=== PATIENT | male | born 1965 | race African-American/Black ===

== ENCOUNTER 2022-03-28 14:13 | Emergency (ER) | payer MEDICAID, OTHER ==
[~2022-03-28] VITALS: Ht 170.2 cm; Wt 73.0 kg
[2022-03-28 14:19] VITALS: BP 175/105
[2022-03-28] MEDS ORDERED: LIDOCAINE 5% PATCH TOP SCH (14:45)
[2022-03-28] MEDS ORDERED: IBUPROFEN 600MG TABLET PO ONE (14:45)
[2022-03-28] MEDS ORDERED: LIDO700A15 TP (15:42)
[2022-03-28] MEDS ORDERED: NAPR-1176 MT (15:42)
== END 2022-03-28 15:59 | disposition home or self-care (01) ==
LOC: ER 14:13
DX: M54.2 Cervicalgia (principal); M54.50 Low back pain, unspecified; V43.52XA Car driver injured in collision with other type car in traffic accident, initial encounter; Y93.89 Activity, other specified; Y92.410 Unspecified street and highway as the place of occurrence of the external cause
CPT/HCPCS: 99283; Z7610

== ENCOUNTER 2022-05-08 09:26 | Inpatient (IN) | payer MEDICAID ==
[~2022-05-08] VITALS: Ht 182.9 cm; Wt 62.1 kg
[~2022-05-08 09:26] MED LIST: LIDO700A15 TP; NAPR-1176 MT
[2022-05-08] MEDS ORDERED: MAGNESIUM/ALUMINUM HYDROXIDE/SIMETHICONE 30ML UDC PO STA (10:02)
[2022-05-08] MEDS ORDERED: METOCLOPRAMIDE HCL 10MG/2ML VIAL IV STA (10:02)
[2022-05-08] MEDS ORDERED: SODIUM CHLORIDE 0.9% 1,000 ML IV ONE (10:15)
[2022-05-08] MEDS ORDERED: HYDRALAZINE 20MG/ML VIAL IV ONE ×2 (10:45→12:15)
[2022-05-08 11:17] LABS: HEMATOCRIT. 46.1 % (42.0-52.0); HEMOGLOBIN. 14.8 g/dL (14.0-18.0); MEAN CORPUSCULAR HEMOGLOBIN 25.6 pg (28.0-32.0); MEAN CORPUSCULAR VOLUME 79.9 fL (80.0-94.0); MEAN PLATELET VOLUME 9.4 fl (7.4-10.4); PLATELET 247 x1000/uL (130-400); RED BLOOD CELL COUNT 5.77 mill/uL (4.7-6.1); RED CELL DISTRIBUTION WIDTH 16.5 % (11.6-14.6)
[2022-05-08 11:28] LABS: CHLORIDE 90 mEq/L (98-107)
[2022-05-08 11:50] LABS: PLATELET ESTIMATE NORMAL
[2022-05-08] MEDS ORDERED: PIPERACILLIN/TAZ 3.375G PREMIX 50 ML IV ONE (12:00)
[2022-05-08] MEDS ORDERED: NITROGLYCERIN 0.4MG TABLET SL SL PRN (15:15)
[2022-05-08] MEDS ORDERED: ONDANSETRON HCL 4MG/2ML INJ IV PRN (15:15)
[2022-05-08] MEDS ORDERED: MAGNESIUM/ALUMINUM HYDROXIDE/SIMETHICONE 30ML UDC PO PRN (15:15)
[2022-05-08] MEDS ORDERED: IPRATROPIUM/ALBUTEROL 0.5-3(2.5)MG/3ML NEB NEB PRN (15:15)
[2022-05-08] MEDS ORDERED: CLONIDINE 0.2MG TABLET PO PRN (15:15)
[2022-05-08] MEDS ORDERED: KETOROLAC 15MG/ML VIAL IV PRN (15:15)
[2022-05-08] MEDS ORDERED: GUAIFENESIN 200MG/10ML SUGAR FREE UDC PO PRN (15:15)
[2022-05-08] MEDS ORDERED: DOCUSATE SODIUM 100MG CAPSULE PO PRN (15:15)
[2022-05-08] MEDS ORDERED: ENOXAPARIN 40MG/0.4ML SYR SUBCUT SCH (15:15)
[2022-05-08] MEDS ORDERED: ACETAMINOPHEN 325MG TABLET PO PRN ×2 (15:15)
[2022-05-08 15:30] VITALS: BP 146/87
[2022-05-08] MEDS ORDERED: ENOXAPARIN 30MG/0.3ML SYR SUBCUT SCH (15:30)
[2022-05-08] MEDS ORDERED: PIPERACILLIN/TAZ 3.375G PREMIX 50 ML IV NR (16:00)
[2022-05-08 16:06] LABS: FOLIC ACID (FOLATE) SERUM >20 ng/mL ng/mL (>5.38); VITAMIN B12 SERUM 407 pg/mL (211-911)
[2022-05-08] MEDS: AMLODIPINE 10MG TABLET PO SCH (16:16)
[2022-05-08] MEDS: NITROGLYCERIN OINT 1GM/INCH UDPKT TD SCH ×2 (16:17→21:23)
[2022-05-08 16:49] VITALS: BP 146/87
[2022-05-08] MEDS: SODIUM CHLORIDE 0.9% 1,000 ML IV SCH (17:40)
[2022-05-08] MEDS ORDERED: PNEUMOCOCCAL 23-VAL P-SAC VAC 0.5 ML IM ONE (18:30)
[2022-05-08 20:00] VITALS: BP 135/80
[2022-05-08] MEDS ORDERED: ZOLPIDEM TARTRATE 5MG TABLET PO PRN (21:00)
[2022-05-08] MEDS: FAMOTIDINE 20MG TABLET PO SCH (21:21)
[2022-05-08] MEDS: METOPROLOL TARTRATE 25MG TABLET PO SCH (21:22)
[2022-05-08] MEDS: HYDRALAZINE HCL 50MG TABLET PO SCH (21:23)
[2022-05-08] MEDS: PIPERACILLIN/TAZOBACTAM 3.375G in DEXT 5% WATER 50ML IV SCH (21:27)
[2022-05-08 22:13] LABS: CLARITY URINE CLEAR (CLEAR); COLOR URINE YELLOW (YELLOW); KETONES URINE 4+ (NEGATIVE); LEUKOCYTE ESTERASE URINE NEGATIVE (NEGATIVE); NITRITE URINE NEGATIVE (NEGATIVE); OCCULT BLOOD URINE TRACE (NEGATIVE); PH URINE 5.5 (4.5-8.0); PROTEIN URINE 1+ (NEGATIVE); SPECIFIC GRAVITY URINE 1.023 (1.005-1.030)
[2022-05-08 22:29] LABS: *AMPHETAMINES SCREEN URINE NEGATIVE (NEGATIVE); *BARBITURATES SCREEN URINE NEGATIVE (NEGATIVE); *BENZODIAZEPINES SCREEN URINE NEGATIVE (NEGATIVE); *COCAINE SCREEN URINE NEGATIVE (NEGATIVE); CANNABINOID URINE SCREEN PRESUMTIVE POSITIVE (NEGATIVE); METHADONE URINE SCREEN NEGATIVE (NEGATIVE); OPIATES URINE SCREEN NEGATIVE (NEGATIVE); PHENCYCLIDINE URINE SCREEN NEGATIVE (NEGATIVE)
[2022-05-09] VITALS: BP 111/70
[2022-05-09 02:21] LABS: CREATINE KINASE 355 IU/L (39-308); CREATINE KINASE MB FRACTION 4.2 ng/mL (0.5-3.6); ETHANOL BLOOD < 10 mg/dL
[2022-05-09 04:00] VITALS: BP 114/65
[2022-05-09] MEDS: HYDRALAZINE HCL 50MG TABLET PO SCH ×3 (06:00→22:43)
[2022-05-09] MEDS: NITROGLYCERIN OINT 1GM/INCH UDPKT TD SCH ×3 (06:00→22:43)
[2022-05-09] MEDS: PIPERACILLIN/TAZOBACTAM 3.375G in DEXT 5% WATER 50ML IV SCH ×3 (06:23→21:16)
[2022-05-09 07:27] LABS: HEMATOCRIT. 40.9 % (42.0-52.0); HEMOGLOBIN. 13.2 g/dL (14.0-18.0); MEAN CORPUSCULAR HEMOGLOBIN 25.4 pg (28.0-32.0); MEAN CORPUSCULAR VOLUME 78.7 fL (80.0-94.0); MEAN PLATELET VOLUME 9.9 fl (7.4-10.4); PLATELET 203 x1000/uL (130-400); RED CELL DISTRIBUTION WIDTH 15.9 % (11.6-14.6)
[2022-05-09 07:28] LABS: CREATINE KINASE MB FRACTION 3.4 ng/mL (0.5-3.6)
[2022-05-09 07:30] LABS: CHLORIDE 96 mEq/L (98-107)
[2022-05-09 07:37] LABS: PHOSPHORUS 1.9 mg/dL (2.5-4.9)
[2022-05-09 08:00] VITALS: BP 104/67
[2022-05-09] MEDS: METOPROLOL TARTRATE 25MG TABLET PO SCH ×2 (08:47→21:17)
[2022-05-09] MEDS: AMLODIPINE 10MG TABLET PO SCH (08:47)
[2022-05-09] MEDS: SODIUM CHLORIDE 0.9% 1,000 ML IV SCH (11:27)
[2022-05-09 12:00] VITALS: BP 124/66
[2022-05-09] MEDS ORDERED: SODIUM PHOS,M-BASIC-D-BASIC 20 MM in DEXT 5% WATER 243.3333 ML IV NR (12:00)
[2022-05-09] MEDS: ENOXAPARIN 40MG/0.4ML SYR SUBCUT SCH (14:28)
[2022-05-09 16:00] VITALS: BP 111/76
[2022-05-09 20:00] VITALS: BP 119/74
[2022-05-09 20:40] LABS: PLATELET ESTIMATE NORMAL
[2022-05-09] MEDS: FAMOTIDINE 20MG TABLET PO SCH (21:16)
[2022-05-10] VITALS: BP 96/59
[2022-05-10 04:00] VITALS: BP 96/64
[2022-05-10] MEDS: HYDRALAZINE HCL 50MG TABLET PO SCH ×3 (06:00→22:47)
[2022-05-10] MEDS: NITROGLYCERIN OINT 1GM/INCH UDPKT TD SCH ×3 (06:00→22:46)
[2022-05-10] MEDS: PIPERACILLIN/TAZOBACTAM 3.375G in DEXT 5% WATER 50ML IV SCH ×3 (06:00→22:46)
[2022-05-10] MEDS: SODIUM CHLORIDE 0.9% 1,000 ML IV SCH (06:26)
[2022-05-10 06:45] LABS: BASOPHILS % 0.7 % (0.0-2.0); EOSINOPHILS % 3.7 % (0.0-5.0); HEMATOCRIT. 40.3 % (42.0-52.0); HEMOGLOBIN. 13.2 g/dL (14.0-18.0); MEAN CORPUSCULAR HEMOGLOBIN 25.7 pg (28.0-32.0); MEAN CORPUSCULAR VOLUME 78.8 fL (80.0-94.0); MEAN PLATELET VOLUME 9.1 fl (7.4-10.4); MONOCYTES % 13.9 % (2.0-8.0); NEUTROPHILS % 53.7 % (40.0-76.0); PLATELET 174 x1000/uL (130-400); RED BLOOD CELL COUNT 5.12 mill/uL (4.7-6.1); RED CELL DISTRIBUTION WIDTH 15.6 % (11.6-14.6)
[2022-05-10 07:02] LABS: CHLORIDE 95 mEq/L (98-107)
[2022-05-10 08:00] VITALS: BP 132/82
[2022-05-10] MEDS: METOPROLOL TARTRATE 25MG TABLET PO SCH (09:00)
[2022-05-10] MEDS: AMLODIPINE 10MG TABLET PO SCH (10:07)
[2022-05-10 10:28] LABS: PHOSPHORUS 2.7 mg/dL (2.5-4.9)
[2022-05-10 12:00] VITALS: BP 116/81
[2022-05-10] MEDS: ENOXAPARIN 40MG/0.4ML SYR SUBCUT SCH (15:22)
[2022-05-10 16:00] VITALS: BP 124/78
[2022-05-10 20:00] VITALS: BP 131/86
[2022-05-10] MEDS: FAMOTIDINE 20MG TABLET PO SCH (22:47)
[2022-05-11] VITALS: BP 122/85
[2022-05-11] MEDS ORDERED: POTASSIUM CHLORIDE 20MEQ TABLET SR PO NR (00:30)
[2022-05-11] MEDS: KCL 20MEQ/100ML PREMIX 200 ML IV SCH ×2 (02:13→04:44)
[2022-05-11 04:00] VITALS: BP 105/69
[2022-05-11] MEDS: SODIUM CHLORIDE 0.9% 1,000 ML IV SCH (04:45)
[2022-05-11] MEDS: NITROGLYCERIN OINT 1GM/INCH UDPKT TD SCH ×2 (06:00→14:00)
[2022-05-11] MEDS: HYDRALAZINE HCL 50MG TABLET PO SCH ×2 (06:00→14:00)
[2022-05-11] MEDS: PIPERACILLIN/TAZOBACTAM 3.375G in DEXT 5% WATER 50ML IV SCH ×2 (06:01→14:00)
[2022-05-11 08:00] VITALS: BP 124/80
[2022-05-11 08:25] LABS: CHLORIDE 99 mEq/L (98-107)
[2022-05-11] MEDS: AMLODIPINE 10MG TABLET PO SCH (09:02)
[2022-05-11] MEDS ORDERED: AMLO10TA80 PO (09:12)
[2022-05-11 12:00] VITALS: BP 128/81
[2022-05-11 14:42] VITALS: BP 122/78
[2022-05-11] MEDS: ENOXAPARIN 40MG/0.4ML SYR SUBCUT SCH (15:00)
== END 2022-05-11 19:14 | disposition home or self-care (01) | DRG 199 ==
LOC: ER 09:26 → 8WST 11:52 → EDBEDREQ 11:58 → EDBEDREQTM 11:58 → ENRESERV 13:58
PROVIDERS: ADMIT Internal Medicine; ATTEND Internal Medicine
DX: I16.1 Hypertensive emergency (principal); N17.0 Acute kidney failure with tubular necrosis; E87.1 Hypo-osmolality and hyponatremia; K52.9 Noninfective gastroenteritis and colitis, unspecified; E88.09 Other disorders of plasma-protein metabolism, not elsewhere classified; Z20.822 Contact with and (suspected) exposure to COVID-19; I10 Essential (primary) hypertension; Z82.49 Family history of ischemic heart disease and other diseases of the circulatory system
CPT/HCPCS: 36415; 71045; 74176; 76700; 80048; 80053; 80305; 80320; 81003; 82550; 82553; 82607; 82746; 83036; 83540; 83550; 83605; 83735; 84100; 84132; 84443; 84484; 85025; 87426; 93970; 99291; J0360; J1650; J2405; J2543; J2765; J3480; J3490; J7030; J7060; G0480